=== PATIENT | female | born 1980 | race African-American/Black ===

== ENCOUNTER 2017-07-24 23:27 | Inpatient (IN) ==
[2017-07-25 02:18] LABS: Basophils % 0.7 % (0.0-0.8); Eosinophils # 0.3 10*3/uL (0.0-0.87); Eosinophils % 5.2 % (0.00-10.9); Hematocrit 25.9 VOL% (35.7-47.0); Hemoglobin 8.2 GM/DL (12.0-16.0); Immature Granulocytes % 0.8 %; Immature Granulocytes Absolute 0.05 #; Mean Corpuscular HGB Conc 31.7 GM/DL (32-36); Mean Corpuscular Hemoglobin 25 PG (27-34); Mean Corpuscular Volume 77.5 FL (87-102); Mean Platelet Volume 10.5 FL (9.6-12.0); Monocytes # 0.4 10*3/uL (0.11-0.8); Monocytes % 6.5 % (1.7-12.7); Neutrophils # 4.3 10*3/uL (1.4-7.4); Neutrophils % 70.8 % (38.7-73.9); Platelet Count 195 T/CUMM (130-400); Red Blood Count 3.34 MC/CUMM (3.8-5.5); White Blood Count 6.1 T/CUMM (4-12)
[2017-07-25 02:26] LABS: PT Patient Result 10.2 SECS
[2017-07-25 02:42] LABS: Alanine Aminotransferase 11 U/L (13-56); Albumin 1.3 G/DL (3.4-5.0); Alkaline Phosphatase 84 U/L (45-117); Aspartate Amino Transferase 15 U/L (0-37); Bilirubin,Total < 0.39 MG/DL (0.2-1.0); Blood Urea Nitrogen 20 MG/DL (7-18); Calcium 7.4 MG/DL (8.5-10.1); Glucose 91 MG/DL (74-106); Osmolality,Calculated 275.8 MOS/KG (273-304); Potassium 3.7 MMOL/L (3.5-5.1); Sodium 137 MMOL/L (136-145); Total Protein 6.5 G/DL (6.4-8.3); Troponin I Only < 0.015 NG/ML (0.00-0.045)
[2017-07-25 02:42] LABS: Apearance,Urine Slightly Hazy (Clear); Bilirubin,Urine Negative (Negative); Blood, Urine Moderate mg/dL (Negative); Glucose,Urine (UA) 50 mg/dL (Negative); Granular Casts,Urine 15 /LPF (0-1); Hyaline Casts,Urine 33 /LPF (0-3); Ketones,Urine Negative (Negative); Mucus,Urine Occasional /LPF (Occasional); Nitrite,Urine Negative (Negative); Protein,Urine >=500 MG/DL; RBC,Urine 74 /HPF (0-4); Squamous Epithelial Cell,Urine Occasional /HPF (0-10); Urine Color Yellow (Yellow); Urine Specific Gravity 1.011 (1.001-1.035); Urine Urobilinogen < 2.0 EU/DL (0.2-1.0); WBC,Urine 19 /HPF (0-6)
[2017-07-25 05:50] LABS: Hypochromasia 1+; Microcytosis 1+; Platelet Estimate Adequate
[2017-07-25] MEDS ORDERED: ONDANSETRON 4 MG/2 ML VIAL IV ONE (06:07)
[2017-07-25] MEDS ORDERED: ONDANSETRON 4 MG/2 ML VIAL ONE (06:09)
[2017-07-25] MEDS ORDERED: DEXTROSE 50% 25 GM/50 ML VIAL IV PRN (07:36)
[2017-07-25] MEDS ORDERED: FUROSEMIDE 20 MG/2 ML VIAL IV PRN (07:36)
[2017-07-25] MEDS ORDERED: ALBUMIN 25% 50 GM in PREMIX 1 EACH IV ONE (07:36)
[2017-07-25] MEDS ORDERED: SODIUM CHLORIDE 0.9% 1,000 ML IV PRN (07:36)
[2017-07-25] MEDS ORDERED: GLUCAGON 1 MG VIAL IM PRN (07:36)
[2017-07-25] MEDS: INSULIN REGULAR 100 UNIT/ML SUBCUT SCH ×4 (08:00→21:05)
[2017-07-25] MEDS ORDERED: FUROSEMIDE 40 MG/4 ML VIAL IV SCH (09:00)
[2017-07-25] MEDS: SODIUM CHLORIDE 0.9% 1,000 ML IV SCH (09:14)
[2017-07-25] MEDS: CIPROFLOXACIN INJ 400 MG in PREMIX 1 EACH IV SCH ×2 (09:15→21:03)
[2017-07-25] MEDS: ENOXAPARIN 40 MG/0.4 ML SYRINGE SUBCUT SCH (09:20)
[2017-07-25 09:23] LABS: Basophils # 0.1 10*3/uL (0.0-0.2); Basophils % 0.8 % (0.0-0.8); Eosinophils # 0.2 10*3/uL (0.0-0.87); Eosinophils % 3.3 % (0.00-10.9); Hematocrit 26.4 VOL% (35.7-47.0); Hemoglobin 8.4 GM/DL (12.0-16.0); Immature Granulocytes % 0.5 %; Immature Granulocytes Absolute 0.03 #; Lymphocytes # 0.8 10*3/uL (1.4-4.0); Lymphocytes % 13.2 % (21.3-54.2); Mean Corpuscular HGB Conc 31.8 GM/DL (32-36); Mean Corpuscular Hemoglobin 25 PG (27-34); Mean Corpuscular Volume 77.9 FL (87-102); Mean Platelet Volume 10.9 FL (9.6-12.0); Monocytes # 0.4 10*3/uL (0.11-0.8); Monocytes % 5.9 % (1.7-12.7); Neutrophils # 4.8 10*3/uL (1.4-7.4); Neutrophils % 76.3 % (38.7-73.9); Platelet Count 175 T/CUMM (130-400); Red Blood Count 3.39 MC/CUMM (3.8-5.5); Red Cell Distribution Width 17.1 % (9.3-17.3); White Blood Count 6.3 T/CUMM (4-12)
[2017-07-25] MEDS: DOCUSATE SODIUM 100 MG CAPSULE PO SCH ×2 (09:23→21:05)
[2017-07-25] MEDS: PANTOPRAZOLE 40 MG TABLET PO SCH (09:23)
[2017-07-25 09:47] LABS: Eosinophils 4 % (0-10); Hypochromasia 1+; Lymphocytes 10 % (20-55); Segmented Neutrophils 81 % (50-85); Total Cells Counted 100
[2017-07-25 09:48] LABS: Microcytosis 1+; Platelet Estimate Adequate
[2017-07-25 10:00] LABS: Risk Ratio 6.97
[2017-07-25 10:13] LABS: Vitamin B12 373 PG/ML (211-911)
[2017-07-25 10:27] LABS: Sedimentation Rate-Westergren 123 MM/HR (0-20)
[2017-07-25] MEDS: MORPHINE 2 MG/1 ML SYRINGE IV PRN ×3 (11:39→21:02)
[2017-07-25 12:21] LABS: Immunoglobulin A 661 MG/DL (70-400); Immunoglobulin G 2290 MG/DL (700-1600); Immunoglobulin M 107 MG/DL (40-230)
[2017-07-25] MEDS: METOPROLOL TARTRATE 5 MG/5 ML VIAL IV SCH ×2 (12:44→18:34)
[2017-07-25 13:26] LABS: % Iron Saturation 12.8 % (18-50)
[2017-07-25] MEDS: FUROSEMIDE 100 MG/10 ML VIAL IV SCH (18:45)
[2017-07-25 19:36] LABS: Hematocrit 28.6 VOL% (35.7-47.0); Hemoglobin 9.2 GM/DL (12.0-16.0)
[2017-07-25] MEDS: HYDROXYCHLOROQUINE 200 MG TABLET PO SCH (21:05)
[2017-07-25] MEDS: LISINOPRIL 10 MG TABLET PO SCH (21:05)
[2017-07-25] MEDS: ATORVASTATIN 20 MG TABLET PO SCH (21:05)
[2017-07-25] MEDS: cloNIDine 0.1 MG TABLET PO SCH (21:06)
[2017-07-26] MEDS: METOPROLOL TARTRATE 5 MG/5 ML VIAL IV SCH ×3 (00:28→13:23)
[2017-07-26] MEDS: MORPHINE 2 MG/1 ML SYRINGE IV PRN ×4 (00:52→21:56)
[2017-07-26] MEDS: SODIUM CHLORIDE 0.9% 1,000 ML IV SCH (03:21)
[2017-07-26 05:49] LABS: Immunoglobulin A (Chem) 661 MG/DL (70-400); Immunoglobulin G (Chem) 2290 MG/DL (700-1600); Immunoglobulin M (Chem) 107 MG/DL (40-230)
[2017-07-26 08:14] LABS: Basophils % 0.7 % (0.0-0.8); Eosinophils # 0.3 10*3/uL (0.0-0.87); Eosinophils % 4.5 % (0.00-10.9); Hemoglobin 8.6 GM/DL (12.0-16.0); Immature Granulocytes % 0.7 %; Immature Granulocytes Absolute 0.04 #; Lymphocytes # 0.8 10*3/uL (1.4-4.0); Lymphocytes % 13.8 % (21.3-54.2); Mean Corpuscular HGB Conc 33.1 GM/DL (32-36); Mean Corpuscular Hemoglobin 25 PG (27-34); Mean Platelet Volume 10.6 FL (9.6-12.0); Monocytes # 0.4 10*3/uL (0.11-0.8); Monocytes % 7.1 % (1.7-12.7); Neutrophils # 4.4 10*3/uL (1.4-7.4); Neutrophils % 73.2 % (38.7-73.9); Platelet Count 145 T/CUMM (130-400); Red Blood Count 3.42 MC/CUMM (3.8-5.5); Red Cell Distribution Width 16.8 % (9.3-17.3)
[2017-07-26] MEDS: LISINOPRIL 10 MG TABLET PO SCH ×2 (08:35→21:55)
[2017-07-26] MEDS: cloNIDine 0.1 MG TABLET PO SCH ×2 (08:36→21:56)
[2017-07-26] MEDS: DOCUSATE SODIUM 100 MG CAPSULE PO SCH ×2 (08:36→21:55)
[2017-07-26] MEDS: HYDROXYCHLOROQUINE 200 MG TABLET PO SCH ×2 (08:36→21:56)
[2017-07-26 08:37] LABS: Calcium 7.6 MG/DL (8.5-10.1); Osmolality,Calculated 274.8 MOS/KG (273-304); Potassium 3.6 MMOL/L (3.5-5.1)
[2017-07-26] MEDS: PANTOPRAZOLE 40 MG TABLET PO SCH (08:37)
[2017-07-26] MEDS: ENOXAPARIN 40 MG/0.4 ML SYRINGE SUBCUT SCH (08:37)
[2017-07-26] MEDS: FERROUS SULFATE 325 MG TABLET PO SCH (08:37)
[2017-07-26] MEDS: FUROSEMIDE 100 MG/10 ML VIAL IV SCH ×2 (08:38→15:37)
[2017-07-26] MEDS: CIPROFLOXACIN INJ 400 MG in PREMIX 1 EACH IV SCH ×2 (08:39→21:55)
[2017-07-26] MEDS: INSULIN REGULAR 100 UNIT/ML SUBCUT SCH ×4 (08:51→21:50)
[2017-07-26 10:23] LABS: Hemoglobin A1 (Alkaline) 97.4 % (96.5-98.5); Hemoglobin A2 (Alkaline) 2.6 % (1.5-3.5)
[2017-07-26 11:50] LABS: Albumin (SPE) 1.3 G/DL (3.2-5.3); Albumin (SPE) Rel % 20.4 %; Alpha 1 (SPE) 0.4 G/DL (0.1-0.4); Alpha 1 (SPE) Rel % 5.4 %; Alpha 2 (SPE) 0.8 G/DL (0.4-1.0); Alpha 2 (SPE) Rel % 12.9 %; Total Protein (Chem) 6.6 G/DL (6.4-8.3)
[2017-07-26 11:51] LABS: Gamma (SPE) 3.1 G/DL (0.7-1.7); Gamma (SPE) Rel % 46.3 %
[2017-07-26 12:52] LABS: Double Stranded DNA Antibodies > 200.0 IU/ML
[2017-07-26] MEDS: METOPROLOL TARTRATE 25 MG TABLET PO SCH (17:39)
[2017-07-26] MEDS: ONDANSETRON 4 MG/2 ML VIAL IV PRN (21:55)
[2017-07-26] MEDS: ATORVASTATIN 20 MG TABLET PO SCH (21:56)
[2017-07-26 22:45] LABS: Collection Time,Urine 24 HOURS; Total Protein 24 Hr Ur Result 21200 MG/24HR (0-149.1); Total Volume,Urine 3425 ML (400-2000)
[2017-07-26 23:04] LABS: Creatinine 24 Hr Urine Result 0.58 G/24HR (0.60-1.80)
[2017-07-27 06:33] LABS: Albumin 1.3 G/DL (3.4-5.0); Bilirubin,Total 0.6 MG/DL (0.2-1.0); Calcium 7.4 MG/DL (8.5-10.1); Potassium 3.4 MMOL/L (3.5-5.1); Total Protein 5.4 G/DL (6.4-8.3)
[2017-07-27 08:06] LABS: Basophils % 0.5 % (0.0-0.8); Eosinophils # 0.3 10*3/uL (0.0-0.87); Eosinophils % 5.1 % (0.00-10.9); Hematocrit 25.1 VOL% (35.7-47.0); Hemoglobin 8.5 GM/DL (12.0-16.0); Immature Granulocytes % 0.7 %; Immature Granulocytes Absolute 0.04 #; Lymphocytes # 0.9 10*3/uL (1.4-4.0); Lymphocytes % 14.5 % (21.3-54.2); Mean Corpuscular HGB Conc 33.9 GM/DL (32-36); Mean Corpuscular Hemoglobin 26 PG (27-34); Mean Corpuscular Volume 75.8 FL (87-102); Mean Platelet Volume 10.9 FL (9.6-12.0); Monocytes # 0.4 10*3/uL (0.11-0.8); Monocytes % 7.5 % (1.7-12.7); Neutrophils # 4.2 10*3/uL (1.4-7.4); Neutrophils % 71.7 % (38.7-73.9); Platelet Count 115 T/CUMM (130-400); Red Blood Count 3.31 MC/CUMM (3.8-5.5); Red Cell Distribution Width 16.4 % (9.3-17.3); White Blood Count 5.9 T/CUMM (4-12)
[2017-07-27 08:37] LABS: Eosinophils 4 % (0-10); Lymphocytes 9 % (20-55); Platelet Estimate Decreased; Segmented Neutrophils 77 % (50-85); Total Cells Counted 100
[2017-07-27 08:38] LABS: Giant Platelets Few; Hypochromasia 1+; Microcytosis Slight; Ovalocytes Slight
[2017-07-27] MEDS: INSULIN REGULAR 100 UNIT/ML SUBCUT SCH ×3 (09:28→21:25)
[2017-07-27] MEDS: CIPROFLOXACIN INJ 400 MG in PREMIX 1 EACH IV SCH ×2 (09:29→21:22)
[2017-07-27] MEDS: DOCUSATE SODIUM 100 MG CAPSULE PO SCH ×2 (09:30→21:17)
[2017-07-27] MEDS: HYDROXYCHLOROQUINE 200 MG TABLET PO SCH ×2 (09:30→21:17)
[2017-07-27] MEDS: LISINOPRIL 10 MG TABLET PO SCH ×2 (09:30→21:17)
[2017-07-27] MEDS: cloNIDine 0.1 MG TABLET PO SCH (09:30)
[2017-07-27] MEDS: METOPROLOL TARTRATE 25 MG TABLET PO SCH ×2 (09:30→21:17)
[2017-07-27] MEDS: FERROUS SULFATE 325 MG TABLET PO SCH (09:31)
[2017-07-27] MEDS: PANTOPRAZOLE 40 MG TABLET PO SCH (09:31)
[2017-07-27] MEDS: ENOXAPARIN 40 MG/0.4 ML SYRINGE SUBCUT SCH (09:32)
[2017-07-27] MEDS: FUROSEMIDE 100 MG/10 ML VIAL IV SCH ×2 (09:32→16:40)
[2017-07-27] MEDS ORDERED: POTASSIUM CHLORIDE 20 MEQ TABLET PO ONE (11:54)
[2017-07-27] MEDS ORDERED: MAGNESIUM SULF RIDER 2 GM in PREMIX 1 EACH IV ONE (12:00)
[2017-07-27] MEDS: IRON SUCROSE 200 MG in SODIUM CHLORIDE 0.9% 100 ML IV SCH (12:16)
[2017-07-27] MEDS: amLODIPine 5 MG TABLET PO SCH (12:20)
[2017-07-27] MEDS: ATORVASTATIN 20 MG TABLET PO SCH (21:17)
[2017-07-27] MEDS: ONDANSETRON 4 MG/2 ML VIAL IV PRN (21:19)
[2017-07-27] MEDS: MORPHINE 2 MG/1 ML SYRINGE IV PRN (21:20)
[2017-07-28 05:34] LABS: Basophils % 0.6 % (0.0-0.8); Eosinophils # 0.3 10*3/uL (0.0-0.87); Eosinophils % 6.4 % (0.00-10.9); Hematocrit 23.6 VOL% (35.7-47.0); Hemoglobin 7.7 GM/DL (12.0-16.0); Immature Granulocytes % 0.8 %; Immature Granulocytes Absolute 0.04 #; Lymphocytes # 0.6 10*3/uL (1.4-4.0); Lymphocytes % 12.9 % (21.3-54.2); Mean Corpuscular HGB Conc 32.6 GM/DL (32-36); Mean Corpuscular Hemoglobin 25 PG (27-34); Mean Corpuscular Volume 77.6 FL (87-102); Mean Platelet Volume 11.1 FL (9.6-12.0); Monocytes # 0.4 10*3/uL (0.11-0.8); Monocytes % 8.5 % (1.7-12.7); Neutrophils # 3.5 10*3/uL (1.4-7.4); Neutrophils % 70.8 % (38.7-73.9); Platelet Count 102 T/CUMM (130-400); Red Blood Count 3.04 MC/CUMM (3.8-5.5); Red Cell Distribution Width 16.5 % (9.3-17.3)
[2017-07-28 06:10] LABS: Alanine Aminotransferase < 9 U/L (13-56); Albumin 1.3 G/DL (3.4-5.0); Alkaline Phosphatase 65 U/L (45-117); Aspartate Amino Transferase 16 U/L (0-37); Bilirubin,Total < 0.39 MG/DL (0.2-1.0); Blood Urea Nitrogen 24 MG/DL (7-18); Calcium 7.3 MG/DL (8.5-10.1); Glucose 86 MG/DL (74-106); Osmolality,Calculated 277.7 MOS/KG (273-304); Potassium 3.3 MMOL/L (3.5-5.1); Sodium 138 MMOL/L (136-145); Total Protein 5.2 G/DL (6.4-8.3)
[2017-07-28 06:11] LABS: Calcium 7.4 MG/DL (8.5-10.1); Osmolality,Calculated 275.8 MOS/KG (273-304); Potassium 3.3 MMOL/L (3.5-5.1)
[2017-07-28] MEDS: INSULIN REGULAR 100 UNIT/ML SUBCUT SCH ×4 (09:45→20:35)
[2017-07-28] MEDS ORDERED: DIAZEPAM 5 MG TABLET PO ONE (09:48)
[2017-07-28] MEDS: METOPROLOL TARTRATE 25 MG TABLET PO SCH ×2 (09:53→23:38)
[2017-07-28] MEDS: IRON SUCROSE 200 MG in SODIUM CHLORIDE 0.9% 100 ML IV SCH (11:20)
[2017-07-28] MEDS: FUROSEMIDE 100 MG/10 ML VIAL IV SCH ×2 (11:21→16:51)
[2017-07-28] MEDS: amLODIPine 5 MG TABLET PO SCH (11:55)
[2017-07-28] MEDS: DOCUSATE SODIUM 100 MG CAPSULE PO SCH ×2 (11:55→23:38)
[2017-07-28] MEDS: FERROUS SULFATE 325 MG TABLET PO SCH (11:55)
[2017-07-28] MEDS: HYDROXYCHLOROQUINE 200 MG TABLET PO SCH ×2 (11:55→23:38)
[2017-07-28] MEDS: LISINOPRIL 10 MG TABLET PO SCH ×2 (11:55→23:38)
[2017-07-28] MEDS: PANTOPRAZOLE 40 MG TABLET PO SCH (11:55)
[2017-07-28] MEDS: CIPROFLOXACIN INJ 400 MG in PREMIX 1 EACH IV SCH ×2 (11:56→22:00)
[2017-07-28 15:52] LABS: Hematocrit 24.5 VOL% (35.7-47.0); Hemoglobin 8.3 GM/DL (12.0-16.0)
[2017-07-28] MEDS: ATORVASTATIN 20 MG TABLET PO SCH (23:39)
[2017-07-28] MEDS: MORPHINE 2 MG/1 ML SYRINGE IV PRN (23:46)
[2017-07-29] MEDS: HYDROXYCHLOROQUINE 200 MG TABLET PO SCH ×2 (08:47→22:40)
[2017-07-29] MEDS: METOPROLOL TARTRATE 25 MG TABLET PO SCH ×2 (08:47→22:40)
[2017-07-29] MEDS: LISINOPRIL 10 MG TABLET PO SCH ×2 (08:47→22:40)
[2017-07-29] MEDS: FUROSEMIDE 100 MG/10 ML VIAL IV SCH ×2 (08:48→15:48)
[2017-07-29] MEDS: DOCUSATE SODIUM 100 MG CAPSULE PO SCH ×2 (08:48→22:41)
[2017-07-29] MEDS: FOLIC ACID 1 MG TABLET PO SCH (08:48)
[2017-07-29] MEDS: FERROUS SULFATE 325 MG TABLET PO SCH (08:48)
[2017-07-29] MEDS: MORPHINE 2 MG/1 ML SYRINGE IV PRN ×2 (08:48→15:55)
[2017-07-29] MEDS: PANTOPRAZOLE 40 MG TABLET PO SCH (08:48)
[2017-07-29] MEDS: amLODIPine 5 MG TABLET PO SCH (08:49)
[2017-07-29] MEDS: INSULIN REGULAR 100 UNIT/ML SUBCUT SCH ×4 (08:49→20:29)
[2017-07-29] MEDS: CIPROFLOXACIN INJ 400 MG in PREMIX 1 EACH IV SCH ×2 (08:49→22:20)
[2017-07-29 08:50] LABS: Albumin (UPE) Rel % 42.5 %; Alpha 1 (UPE) Rel % 8.5 %; Alpha 2 (UPE) 2289.6 MG/24H; Alpha 2 (UPE) Rel % 10.8 %; Beta (UPE) 3243.6 MG/24H; Beta (UPE) Rel % 15.3 %; Gamma (UPE) 2854.8 MG/24H; Gamma (UPE) Rel % 22.9 %
[2017-07-29 10:55] LABS: Basophils % 0.8 % (0.0-0.8); Eosinophils # 0.3 10*3/uL (0.0-0.87); Eosinophils % 5.8 % (0.00-10.9); Hematocrit 22.8 VOL% (35.7-47.0); Hemoglobin 7.8 GM/DL (12.0-16.0); Immature Granulocytes % 1.2 %; Immature Granulocytes Absolute 0.06 #; Lymphocytes # 0.6 10*3/uL (1.4-4.0); Lymphocytes % 12.1 % (21.3-54.2); Mean Corpuscular HGB Conc 34.2 GM/DL (32-36); Mean Corpuscular Hemoglobin 27 PG (27-34); Mean Corpuscular Volume 77.6 FL (87-102); Monocytes # 0.4 10*3/uL (0.11-0.8); Monocytes % 7.4 % (1.7-12.7); Neutrophils # 3.7 10*3/uL (1.4-7.4); Neutrophils % 72.7 % (38.7-73.9); Platelet Count 105 T/CUMM (130-400); Red Blood Count 2.94 MC/CUMM (3.8-5.5); Red Cell Distribution Width 16.5 % (9.3-17.3)
[2017-07-29] MEDS: IRON SUCROSE 200 MG in SODIUM CHLORIDE 0.9% 100 ML IV SCH (11:01)
[2017-07-29 11:24] LABS: Calcium 7.2 MG/DL (8.5-10.1); Osmolality,Calculated 278.8 MOS/KG (273-304); Potassium 3.2 MMOL/L (3.5-5.1)
[2017-07-29 11:25] LABS: Anti-Nuclear Antibody Pattern HOMOGENEOUS
[2017-07-29] MEDS ORDERED: SODIUM CHLORIDE 0.9% 1,000 ML IV PRN (12:41)
[2017-07-29] MEDS ORDERED: methylPREDNISolone SOD SUC INJ 500 MG in SODIUM CHLORIDE 0.9% 100 ML IV ONE (16:19)
[2017-07-29] MEDS: ATORVASTATIN 20 MG TABLET PO SCH (22:40)
[2017-07-30] MEDS: ONDANSETRON 4 MG/2 ML VIAL IV PRN ×2 (03:47→13:55)
[2017-07-30 07:28] LABS: Albumin 1.6 G/DL (3.4-5.0); Bilirubin,Total 0.4 MG/DL (0.2-1.0); Calcium 7.8 MG/DL (8.5-10.1); Osmolality,Calculated 279.1 MOS/KG (273-304); Potassium 3.6 MMOL/L (3.5-5.1); Total Protein 7.2 G/DL (6.4-8.3)
[2017-07-30] MEDS ORDERED: cefOXitin 2,000 MG in SYRINGE 1 EACH IV ONE (07:30)
[2017-07-30] MEDS ORDERED: LIDOCAINE 1%/EPI INJ 20 ML VIAL ONE (07:47)
[2017-07-30] MEDS ORDERED: TISSUE ADHESIVE 1 EACH APPLICATOR TOP ONE (07:47)
[2017-07-30 07:59] LABS: Basophils % 0.3 % (0.0-0.8); Hematocrit 29.2 VOL% (35.7-47.0); Hemoglobin 10.2 GM/DL (12.0-16.0); Immature Granulocytes % 1.3 %; Immature Granulocytes Absolute 0.09 #; Lymphocytes # 0.5 10*3/uL (1.4-4.0); Lymphocytes % 7.8 % (21.3-54.2); Mean Corpuscular HGB Conc 34.9 GM/DL (32-36); Mean Corpuscular Hemoglobin 28 PG (27-34); Mean Corpuscular Volume 78.7 FL (87-102); Mean Platelet Volume 11.3 FL (9.6-12.0); Monocytes # 0.2 10*3/uL (0.11-0.8); Monocytes % 2.2 % (1.7-12.7); Neutrophils # 6.1 10*3/uL (1.4-7.4); Neutrophils % 88.4 % (38.7-73.9); Platelet Count 106 T/CUMM (130-400); Red Blood Count 3.71 MC/CUMM (3.8-5.5); Red Cell Distribution Width 16.3 % (9.3-17.3); White Blood Count 6.9 T/CUMM (4-12)
[2017-07-30] MEDS: FUROSEMIDE 100 MG/10 ML VIAL IV SCH ×2 (09:14→15:45)
[2017-07-30] MEDS: INSULIN REGULAR 100 UNIT/ML SUBCUT SCH ×4 (09:14→21:26)
[2017-07-30] MEDS: METOPROLOL TARTRATE 25 MG TABLET PO SCH ×2 (09:15→21:21)
[2017-07-30] MEDS: FERROUS SULFATE 325 MG TABLET PO SCH (09:15)
[2017-07-30] MEDS: FOLIC ACID 1 MG TABLET PO SCH (09:15)
[2017-07-30] MEDS: DOCUSATE SODIUM 100 MG CAPSULE PO SCH ×2 (09:15→21:21)
[2017-07-30] MEDS: amLODIPine 5 MG TABLET PO SCH (09:15)
[2017-07-30] MEDS: CIPROFLOXACIN INJ 400 MG in PREMIX 1 EACH IV SCH ×2 (09:15→21:19)
[2017-07-30] MEDS: IRON SUCROSE 200 MG in SODIUM CHLORIDE 0.9% 100 ML IV SCH (09:15)
[2017-07-30] MEDS: PANTOPRAZOLE 40 MG TABLET PO SCH (09:15)
[2017-07-30] MEDS: LISINOPRIL 10 MG TABLET PO SCH ×2 (09:15→21:20)
[2017-07-30] MEDS: HYDROXYCHLOROQUINE 200 MG TABLET PO SCH ×2 (09:15→21:20)
[2017-07-30 10:11] LABS: Anti SS-A Antibodies 27 EU/ML
[2017-07-30 10:12] LABS: Anti SS-B Antibodies < 16 EU/ML
[2017-07-30] MEDS ORDERED: PROPOFOL 200 MG/20 ML VIAL IV ONE (10:44)
[2017-07-30] MEDS ORDERED: HYDROmorphone 2 MG/1 ML VIAL ONE (10:44)
[2017-07-30] MEDS ORDERED: ROCURONIUM 100 MG/10 ML VIAL IV ONE (10:45)
[2017-07-30] MEDS ORDERED: KETOROLAC 30 MG/1 ML VIAL ONE (10:45)
[2017-07-30] MEDS ORDERED: GLYCOPYRROLATE 0.4 MG/2 ML VIAL ONE (10:45)
[2017-07-30] MEDS ORDERED: LACTATED RINGERS 1,000 ML IV ONE (10:45)
[2017-07-30] MEDS ORDERED: DEXAMETHASONE 10 MG/1 ML VIAL ONE (10:45)
[2017-07-30] MEDS ORDERED: SUCCINYLCHOLINE 200 MG/10 ML VIAL ONE (10:45)
[2017-07-30] MEDS ORDERED: ACETAMINOPHEN 1,000 MG/100 ML VIAL IV ONE (10:45)
[2017-07-30] MEDS ORDERED: NEOSTIGMINE 10 MG/10 ML VIAL ONE (10:45)
[2017-07-30] MEDS ORDERED: ONDANSETRON 4 MG/2 ML VIAL ONE (10:45)
[2017-07-30] MEDS ORDERED: LABETALOL 100 MG/20 ML VIAL IV ONE (10:45)
[2017-07-30] MEDS ORDERED: METOCLOPRAMIDE 10 MG/2 ML VIAL ONE (10:45)
[2017-07-30] MEDS ORDERED: fentaNYL 100 MCG/2 ML VIAL ONE (10:46)
[2017-07-30] MEDS ORDERED: SEVOFLURANE 1 UNIT/15 MINUTE INH ONE (11:55)
[2017-07-30] MEDS: SODIUM CHLORIDE 0.9% IV SCH (13:55)
[2017-07-30] MEDS: METHYLPREDNISOLONE SOD SUC IV SCH (13:55)
[2017-07-30] MEDS: MORPHINE 4 MG/1 ML VIAL IV PRN (13:55)
[2017-07-30] MEDS: ATORVASTATIN 20 MG TABLET PO SCH (21:21)
[2017-07-31 05:54] LABS: Basophils % 0.1 % (0.0-0.8); Hematocrit 21.2 VOL% (35.7-47.0); Hemoglobin 7.2 GM/DL (12.0-16.0); Immature Granulocytes % 1.5 %; Immature Granulocytes Absolute 0.14 #; Lymphocytes # 0.7 10*3/uL (1.4-4.0); Mean Corpuscular Hemoglobin 27 PG (27-34); Mean Corpuscular Volume 80.6 FL (87-102); Monocytes # 0.6 10*3/uL (0.11-0.8); Monocytes % 5.9 % (1.7-12.7); Neutrophils % 85.5 % (38.7-73.9); Platelet Count 131 T/CUMM (130-400); Red Blood Count 2.63 MC/CUMM (3.8-5.5); White Blood Count 9.3 T/CUMM (4-12)
[2017-07-31 06:13] LABS: Calcium 7.2 MG/DL (8.5-10.1); Potassium 4.1 MMOL/L (3.5-5.1)
[2017-07-31 06:16] LABS: Albumin 1.4 G/DL (3.4-5.0); Bilirubin,Total 0.5 MG/DL (0.2-1.0); Calcium 7.3 MG/DL (8.5-10.1); Osmolality,Calculated 287.1 MOS/KG (273-304); Potassium 4.2 MMOL/L (3.5-5.1); Total Protein 5.6 G/DL (6.4-8.3)
[2017-07-31] MEDS ORDERED: SODIUM CHLORIDE 0.9% 1,000 ML IV PRN (07:27)
[2017-07-31] MEDS: FUROSEMIDE 100 MG/10 ML VIAL IV SCH ×2 (09:27→16:05)
[2017-07-31] MEDS: CIPROFLOXACIN INJ 400 MG in PREMIX 1 EACH IV SCH ×2 (09:28→21:22)
[2017-07-31] MEDS: FOLIC ACID 1 MG TABLET PO SCH (09:30)
[2017-07-31] MEDS: DOCUSATE SODIUM 100 MG CAPSULE PO SCH ×2 (09:30→21:21)
[2017-07-31] MEDS: amLODIPine 5 MG TABLET PO SCH (09:30)
[2017-07-31] MEDS: METOPROLOL TARTRATE 25 MG TABLET PO SCH ×2 (09:31→21:22)
[2017-07-31] MEDS: PANTOPRAZOLE 40 MG TABLET PO SCH (09:32)
[2017-07-31] MEDS: LISINOPRIL 10 MG TABLET PO SCH ×2 (09:32→21:21)
[2017-07-31] MEDS: FERROUS SULFATE 325 MG TABLET PO SCH (09:32)
[2017-07-31] MEDS: HYDROXYCHLOROQUINE 200 MG TABLET PO SCH ×2 (09:32→21:21)
[2017-07-31] MEDS: INSULIN REGULAR 100 UNIT/ML SUBCUT SCH ×4 (09:58→21:22)
[2017-07-31] MEDS: IRON SUCROSE 200 MG in SODIUM CHLORIDE 0.9% 100 ML IV SCH (12:45)
[2017-07-31] MEDS ORDERED: SODIUM CHLORIDE 0.9% IV SCH (16:00)
[2017-07-31] MEDS ORDERED: METHYLPREDNISOLONE SOD SUC IV SCH (16:00)
[2017-07-31] MEDS: METHYLPREDNISOLONE SOD SUC IV SCH ×2 (16:04→16:06)
[2017-07-31] MEDS: SODIUM CHLORIDE 0.9% IV SCH ×2 (16:04→16:06)
[2017-07-31 16:59] LABS: Hematocrit 25.8 VOL% (35.7-47.0)
[2017-07-31 17:08] LABS: Hemoglobin 8.8 GM/DL (12.0-16.0)
[2017-07-31] MEDS: ATORVASTATIN 20 MG TABLET PO SCH (21:21)
[2017-08-01 07:00] LABS: Basophils % 0.1 % (0.0-0.8); Hematocrit 25.1 VOL% (35.7-47.0); Hemoglobin 8.6 GM/DL (12.0-16.0); Immature Granulocytes % 3.7 %; Immature Granulocytes Absolute 0.31 #; Lymphocytes # 0.6 10*3/uL (1.4-4.0); Lymphocytes % 7.7 % (21.3-54.2); Mean Corpuscular HGB Conc 34.3 GM/DL (32-36); Mean Corpuscular Hemoglobin 28 PG (27-34); Mean Corpuscular Volume 81.8 FL (87-102); Mean Platelet Volume 11.6 FL (9.6-12.0); Monocytes # 0.3 10*3/uL (0.11-0.8); Monocytes % 3.7 % (1.7-12.7); Neutrophils % 84.8 % (38.7-73.9); Platelet Count 109 T/CUMM (130-400); Red Blood Count 3.07 MC/CUMM (3.8-5.5); Red Cell Distribution Width 16.5 % (9.3-17.3); White Blood Count 8.3 T/CUMM (4-12)
[2017-08-01 07:37] LABS: Albumin 1.7 G/DL (3.4-5.0); Bilirubin,Total 0.4 MG/DL (0.2-1.0); Calcium 7.3 MG/DL (8.5-10.1); Potassium 3.9 MMOL/L (3.5-5.1); Total Protein 6.1 G/DL (6.4-8.3)
[2017-08-01] MEDS: FUROSEMIDE 100 MG/10 ML VIAL IV SCH ×2 (09:49→16:08)
[2017-08-01] MEDS: METOPROLOL TARTRATE 25 MG TABLET PO SCH ×2 (09:50→20:50)
[2017-08-01] MEDS: DOCUSATE SODIUM 100 MG CAPSULE PO SCH ×2 (09:50→20:50)
[2017-08-01] MEDS: FOLIC ACID 1 MG TABLET PO SCH (09:50)
[2017-08-01] MEDS: HYDROXYCHLOROQUINE 200 MG TABLET PO SCH ×2 (09:50→20:50)
[2017-08-01] MEDS: PANTOPRAZOLE 40 MG TABLET PO SCH (09:50)
[2017-08-01] MEDS: FERROUS SULFATE 325 MG TABLET PO SCH (09:50)
[2017-08-01] MEDS: LISINOPRIL 10 MG TABLET PO SCH (09:50)
[2017-08-01] MEDS: amLODIPine 5 MG TABLET PO SCH (09:51)
[2017-08-01] MEDS: CIPROFLOXACIN INJ 400 MG in PREMIX 1 EACH IV SCH ×2 (09:51→20:51)
[2017-08-01] MEDS: INSULIN REGULAR 100 UNIT/ML SUBCUT SCH ×4 (09:56→20:52)
[2017-08-01] MEDS: ATORVASTATIN 20 MG TABLET PO SCH (20:50)
[2017-08-02 05:24] LABS: Basophils % 0.1 % (0.0-0.8); Eosinophils % 0.1 % (0.00-10.9); Hematocrit 22.7 VOL% (35.7-47.0); Hemoglobin 7.9 GM/DL (12.0-16.0); Immature Granulocytes % 3.7 %; Immature Granulocytes Absolute 0.27 #; Lymphocytes # 0.9 10*3/uL (1.4-4.0); Lymphocytes % 12.5 % (21.3-54.2); Mean Corpuscular HGB Conc 34.8 GM/DL (32-36); Mean Corpuscular Hemoglobin 29 PG (27-34); Mean Corpuscular Volume 83.2 FL (87-102); Mean Platelet Volume 11.3 FL (9.6-12.0); Monocytes # 0.7 10*3/uL (0.11-0.8); Monocytes % 9.2 % (1.7-12.7); Neutrophils # 5.4 10*3/uL (1.4-7.4); Neutrophils % 74.4 % (38.7-73.9); Platelet Count 97 T/CUMM (130-400); Red Blood Count 2.73 MC/CUMM (3.8-5.5); Red Cell Distribution Width 16.5 % (9.3-17.3); White Blood Count 7.3 T/CUMM (4-12)
[2017-08-02 05:48] LABS: Band Neutrophils 2 % (0-10); Lymphocytes 3 % (20-55); Segmented Neutrophils 87 % (50-85); Total Cells Counted 100
[2017-08-02 05:49] LABS: Giant Platelets Few; Hypochromasia 1+; Ovalocytes Slight; Platelet Estimate Decreased
[2017-08-02 06:02] LABS: Albumin 1.7 G/DL (3.4-5.0); Calcium 7.5 MG/DL (8.5-10.1); Osmolality,Calculated 290.8 MOS/KG (273-304); Potassium 3.3 MMOL/L (3.5-5.1); Total Protein 5.7 G/DL (6.4-8.3)
[2017-08-02] MEDS: INSULIN REGULAR 100 UNIT/ML SUBCUT SCH ×4 (08:45→21:11)
[2017-08-02] MEDS ORDERED: SODIUM CHLORIDE 0.9% 1,000 ML IV PRN (09:14)
[2017-08-02] MEDS: CIPROFLOXACIN INJ 400 MG in PREMIX 1 EACH IV SCH (10:39)
[2017-08-02] MEDS: FUROSEMIDE 100 MG/10 ML VIAL IV SCH ×2 (10:39→16:27)
[2017-08-02] MEDS: DOCUSATE SODIUM 100 MG CAPSULE PO SCH ×2 (10:39→21:11)
[2017-08-02] MEDS: HYDROXYCHLOROQUINE 200 MG TABLET PO SCH ×2 (10:40→21:11)
[2017-08-02] MEDS: FOLIC ACID 1 MG TABLET PO SCH (10:40)
[2017-08-02] MEDS: FERROUS SULFATE 325 MG TABLET PO SCH (10:40)
[2017-08-02] MEDS: amLODIPine 5 MG TABLET PO SCH (10:40)
[2017-08-02] MEDS: PANTOPRAZOLE 40 MG TABLET PO SCH (10:40)
[2017-08-02] MEDS: METOPROLOL TARTRATE 25 MG TABLET PO SCH (10:40)
[2017-08-02] MEDS: predniSONE 20 MG TABLET PO SCH (10:42)
[2017-08-02 12:34] LABS: Hematocrit 24.3 VOL% (35.7-47.0); Hemoglobin 8.2 GM/DL (12.0-16.0)
[2017-08-02] MEDS: amLODIPine 10 MG TABLET PO SCH (15:09)
[2017-08-02] MEDS: LISINOPRIL 10 MG TABLET PO SCH (21:10)
[2017-08-02] MEDS: CARVEDILOL 12.5 MG TABLET PO SCH (21:11)
[2017-08-02] MEDS: ATORVASTATIN 20 MG TABLET PO SCH (21:11)
[2017-08-02 23:01] LABS: Hematocrit 30.5 VOL% (35.7-47.0); Hemoglobin 10.8 GM/DL (12.0-16.0)
[2017-08-03] MEDS: INSULIN REGULAR 100 UNIT/ML SUBCUT SCH ×4 (07:48→21:13)
[2017-08-03 07:56] LABS: Basophils % 0.3 % (0.0-0.8); Eosinophils % 0.1 % (0.00-10.9); Hematocrit 29.2 VOL% (35.7-47.0); Hemoglobin 10.5 GM/DL (12.0-16.0); Immature Granulocytes % 5.6 %; Immature Granulocytes Absolute 0.45 #; Lymphocytes # 1.1 10*3/uL (1.4-4.0); Lymphocytes % 13.1 % (21.3-54.2); Mean Corpuscular Hemoglobin 29 PG (27-34); Mean Corpuscular Volume 79.6 FL (87-102); Mean Platelet Volume 11.8 FL (9.6-12.0); Monocytes # 0.7 10*3/uL (0.11-0.8); Monocytes % 8.8 % (1.7-12.7); Neutrophils # 5.8 10*3/uL (1.4-7.4); Neutrophils % 72.1 % (38.7-73.9); Platelet Count 119 T/CUMM (130-400); Red Blood Count 3.67 MC/CUMM (3.8-5.5); Red Cell Distribution Width 16.9 % (9.3-17.3)
[2017-08-03] MEDS: LISINOPRIL 10 MG TABLET PO SCH ×2 (08:16→21:30)
[2017-08-03] MEDS: amLODIPine 10 MG TABLET PO SCH (08:16)
[2017-08-03] MEDS: FOLIC ACID 1 MG TABLET PO SCH (08:16)
[2017-08-03] MEDS: predniSONE 20 MG TABLET PO SCH (08:17)
[2017-08-03] MEDS: CARVEDILOL 12.5 MG TABLET PO SCH ×2 (08:17→21:30)
[2017-08-03] MEDS: PANTOPRAZOLE 40 MG TABLET PO SCH (08:17)
[2017-08-03] MEDS: HYDROXYCHLOROQUINE 200 MG TABLET PO SCH ×2 (08:17→21:30)
[2017-08-03] MEDS: FERROUS SULFATE 325 MG TABLET PO SCH (08:17)
[2017-08-03] MEDS: DOCUSATE SODIUM 100 MG CAPSULE PO SCH ×2 (08:17→21:30)
[2017-08-03 08:18] LABS: Band Neutrophils 4 % (0-10); Hypochromasia 1+; Lymphocytes 12 % (20-55); Myelocytes 1 %; Platelet Estimate Decreased; Segmented Neutrophils 78 % (50-85); Total Cells Counted 100
[2017-08-03] MEDS: FUROSEMIDE 100 MG/10 ML VIAL IV SCH ×2 (08:18→17:01)
[2017-08-03 08:19] LABS: Giant Platelets Few
[2017-08-03 08:37] LABS: Albumin 1.9 G/DL (3.4-5.0); Bilirubin,Total 0.4 MG/DL (0.2-1.0); Calcium 7.8 MG/DL (8.5-10.1); Osmolality,Calculated 293.5 MOS/KG (273-304); Potassium 3.1 MMOL/L (3.5-5.1); Total Protein 6.1 G/DL (6.4-8.3)
[2017-08-03] MEDS ORDERED: ONDANSETRON 4 MG/2 ML VIAL IV SCH (10:30)
[2017-08-03] MEDS ORDERED: CYCLOPHOSPHAMIDE INJ 1,500 MG in SODIUM CHLORIDE 0.9% 250 ML IV ONE (11:00)
[2017-08-03] MEDS: ATORVASTATIN 20 MG TABLET PO SCH (21:30)
[2017-08-03] MEDS: ONDANSETRON 4 MG/2 ML VIAL IV PRN (23:47)
[2017-08-04 06:21] LABS: Albumin 1.6 G/DL (3.4-5.0); Bilirubin,Total 0.7 MG/DL (0.2-1.0); Calcium 7.5 MG/DL (8.5-10.1); Total Protein 5.4 G/DL (6.4-8.3)
[2017-08-04 06:34] LABS: Basophils % 0.2 % (0.0-0.8); Eosinophils % 0.3 % (0.00-10.9); Hematocrit 28.8 VOL% (35.7-47.0); Hemoglobin 9.9 GM/DL (12.0-16.0); Immature Granulocytes % 3.2 %; Immature Granulocytes Absolute 0.31 #; Lymphocytes # 1.2 10*3/uL (1.4-4.0); Lymphocytes % 12.6 % (21.3-54.2); Mean Corpuscular HGB Conc 34.4 GM/DL (32-36); Mean Corpuscular Hemoglobin 28 PG (27-34); Mean Corpuscular Volume 81.8 FL (87-102); Mean Platelet Volume 11.6 FL (9.6-12.0); Monocytes # 0.8 10*3/uL (0.11-0.8); Monocytes % 7.8 % (1.7-12.7); Neutrophils # 7.5 10*3/uL (1.4-7.4); Neutrophils % 75.9 % (38.7-73.9); Platelet Count 105 T/CUMM (130-400); Red Blood Count 3.52 MC/CUMM (3.8-5.5); Red Cell Distribution Width 16.7 % (9.3-17.3); White Blood Count 9.8 T/CUMM (4-12)
[2017-08-04] MEDS: INSULIN REGULAR 100 UNIT/ML SUBCUT SCH ×4 (07:52→21:49)
[2017-08-04] MEDS: FUROSEMIDE 100 MG/10 ML VIAL IV SCH ×2 (08:44→16:04)
[2017-08-04] MEDS: FOLIC ACID 1 MG TABLET PO SCH (08:44)
[2017-08-04] MEDS: amLODIPine 10 MG TABLET PO SCH (08:44)
[2017-08-04] MEDS: predniSONE 20 MG TABLET PO SCH (08:44)
[2017-08-04] MEDS: HYDROXYCHLOROQUINE 200 MG TABLET PO SCH ×2 (08:44→21:30)
[2017-08-04] MEDS: FERROUS SULFATE 325 MG TABLET PO SCH (08:44)
[2017-08-04] MEDS: DOCUSATE SODIUM 100 MG CAPSULE PO SCH ×2 (08:44→21:38)
[2017-08-04] MEDS: LISINOPRIL 10 MG TABLET PO SCH ×2 (08:44→21:31)
[2017-08-04] MEDS: PANTOPRAZOLE 40 MG TABLET PO SCH (08:44)
[2017-08-04] MEDS: CARVEDILOL 12.5 MG TABLET PO SCH (08:44)
[2017-08-04] MEDS ORDERED: POTASSIUM CHLORIDE 20 MEQ TABLET PO ONE (11:15)
[2017-08-04] MEDS ORDERED: FOSAPREPITANT 150 MG in SODIUM CHLORIDE 0.9% 100 ML IV ONE (17:00)
[2017-08-04] MEDS: MORPHINE 4 MG/1 ML VIAL IV PRN (17:24)
[2017-08-04] MEDS: CARVEDILOL 25 MG TABLET PO SCH ×2 (18:39→20:41)
[2017-08-04] MEDS: ATORVASTATIN 20 MG TABLET PO SCH (21:32)
[2017-08-05] MEDS ORDERED: cloNIDine 0.1 MG TABLET PO PRN (05:09)
[2017-08-05 06:15] LABS: Eosinophils # 0.1 10*3/uL (0.0-0.87); Eosinophils % 1.3 % (0.00-10.9); Hematocrit 29.4 VOL% (35.7-47.0); Hemoglobin 10.3 GM/DL (12.0-16.0); Immature Granulocytes % 1.3 %; Immature Granulocytes Absolute 0.11 #; Lymphocytes # 0.8 10*3/uL (1.4-4.0); Lymphocytes % 9.6 % (21.3-54.2); Mean Corpuscular Hemoglobin 28 PG (27-34); Mean Corpuscular Volume 80.8 FL (87-102); Mean Platelet Volume 11.5 FL (9.6-12.0); Monocytes # 0.6 10*3/uL (0.11-0.8); Monocytes % 6.6 % (1.7-12.7); Neutrophils # 7.1 10*3/uL (1.4-7.4); Neutrophils % 81.2 % (38.7-73.9); Platelet Count 100 T/CUMM (130-400); Red Blood Count 3.64 MC/CUMM (3.8-5.5); Red Cell Distribution Width 17.2 % (9.3-17.3); White Blood Count 8.7 T/CUMM (4-12)
[2017-08-05 06:52] LABS: Calcium 7.8 MG/DL (8.5-10.1); Osmolality,Calculated 296.8 MOS/KG (273-304); Potassium 3.1 MMOL/L (3.5-5.1)
[2017-08-05] MEDS: INSULIN REGULAR 100 UNIT/ML SUBCUT SCH ×2 (08:49→11:32)
[2017-08-05] MEDS: DOCUSATE SODIUM 100 MG CAPSULE PO SCH (08:50)
[2017-08-05] MEDS: LISINOPRIL 10 MG TABLET PO SCH (08:50)
[2017-08-05] MEDS: amLODIPine 10 MG TABLET PO SCH (08:50)
[2017-08-05] MEDS: predniSONE 20 MG TABLET PO SCH (08:50)
[2017-08-05] MEDS: FOLIC ACID 1 MG TABLET PO SCH (08:51)
[2017-08-05] MEDS: PANTOPRAZOLE 40 MG TABLET PO SCH (08:51)
[2017-08-05] MEDS: CARVEDILOL 25 MG TABLET PO SCH (08:51)
[2017-08-05] MEDS: HYDROXYCHLOROQUINE 200 MG TABLET PO SCH (08:59)
[2017-08-05] MEDS ORDERED: LISINOPRIL 10 MG TABLET PO SCH (09:08)
[2017-08-05] MEDS ORDERED: POTASSIUM CHLORIDE 20 MEQ TABLET PO SCH (11:00)
[2017-08-05 12:21] VITALS: BP 126/95
[2017-08-05] MEDS ORDERED: LISINOPRIL 20 MG TABLET PO SCH (21:00)
== END 2017-08-05 12:50 | disposition home or self-care (01) | DRG 988 ==
LOC: N.ED 23:27 → SUATTDRO 07-25 05:41 → N.EDINP 07-25 05:41 → N.2E 07-25 06:40 → N.4E 08-03 10:01
PROVIDERS: ADMIT Internal Medicine; ATTEND Internal Medicine
PROC: LAPCHOL (2017-07-30 07:50)

== ENCOUNTER 2017-11-11 19:16 | Inpatient (IN) ==
[2017-11-11 20:42] LABS: Basophils % 0.1 % (0.0-0.8); Hematocrit 34.4 VOL% (35.7-47.0); Hemoglobin 10.7 GM/DL (12.0-16.0); Immature Granulocytes % 0.9 %; Immature Granulocytes Absolute 0.08 #; Lymphocytes # 0.3 10*3/uL (1.4-4.0); Lymphocytes % 3.3 % (21.3-54.2); Mean Corpuscular HGB Conc 31.1 GM/DL (32-36); Mean Corpuscular Hemoglobin 26 PG (27-34); Mean Corpuscular Volume 84.9 FL (87-102); Mean Platelet Volume 11.4 FL (9.6-12.0); Monocytes # 0.2 10*3/uL (0.11-0.8); Neutrophils # 8.1 10*3/uL (1.4-7.4); Neutrophils % 93.7 % (38.7-73.9); Platelet Count 191 T/CUMM (130-400); Red Blood Count 4.05 MC/CUMM (3.8-5.5); Red Cell Distribution Width 13.8 % (9.3-17.3); White Blood Count 8.7 T/CUMM (4-12)
[2017-11-11 21:10] LABS: Alanine Aminotransferase 22 U/L (13-56); Albumin 2.2 G/DL (3.4-5.0); Alkaline Phosphatase 130 U/L (45-117); Aspartate Amino Transferase 9 U/L (0-37); Bilirubin,Total < 0.39 MG/DL (0.2-1.0); Blood Urea Nitrogen 21 MG/DL (7-18); Calcium 8.4 MG/DL (8.5-10.1); Glucose 425 MG/DL (74-106); Osmolality,Calculated 297.5 MOS/KG (273-304); Sodium 139 MMOL/L (136-145); Total Protein 6.2 G/DL (6.4-8.3); Troponin I Only < 0.015 NG/ML (0.00-0.045)
[2017-11-11 21:23] LABS: Apearance,Urine CLEAR (Clear); Bilirubin,Urine Negative (Negative); Blood, Urine Small mg/dL (Negative); Glucose,Urine (UA) >=500 mg/dL (Negative); Ketones,Urine Negative (Negative); Nitrite,Urine Negative (Negative); Protein,Urine >=500 MG/DL; RBC,Urine 10 /HPF (0-4); Urine Color Straw (Yellow); Urine Specific Gravity 1.025 (1.001-1.035); Urine Urobilinogen < 2.0 EU/DL (0.2-1.0); WBC,Urine 2 /HPF (0-6)
[2017-11-11 21:26] LABS: Barbiturates Screen,Urine Negative (Negative); Benzodiazepines Screen,Urine Negative (Negative); Cannabinoid Screen,Urine Negative (Negative); Opiate Screen,Urine Negative (Negative); Phencyclidine Screen,Urine Negative (Negative)
[2017-11-11 21:38] LABS: Lymphocytes 1 % (20-55); Platelet Estimate Normal; Polychromasia Few; Segmented Neutrophils 99 % (50-85); Total Cells Counted 100
[2017-11-11 21:42] LABS: INR 0.8; PT Patient Result 8.9 SECS
[2017-11-11] MEDS ORDERED: SODIUM CHLORIDE 0.9% 1,000 ML IV STA (22:18)
[2017-11-11] MEDS ORDERED: INSULIN REGULAR 100 UNIT/ML IV STA (22:19)
[2017-11-11] MEDS ORDERED: hydrALAZINE 20 MG/1 ML VIAL ONE (23:54)
[2017-11-12] MEDS ORDERED: hydrALAZINE 20 MG/1 ML VIAL IV STA (00:02)
[2017-11-12] MEDS ORDERED: ACETAMINOPHEN 325 MG TABLET PO PRN (01:10)
[2017-11-12] MEDS ORDERED: ONDANSETRON 4 MG/2 ML VIAL IV PRN (01:10)
[2017-11-12] MEDS ORDERED: DEXTROSE 50% 25 GM/50 ML VIAL IV PRN (01:17)
[2017-11-12] MEDS ORDERED: GLUCAGON 1 MG VIAL IM PRN (01:17)
[2017-11-12] MEDS: SODIUM CHLORIDE 0.9% 1,000 ML IV SCH ×3 (02:00→23:30)
[2017-11-12 04:03] LABS: Basophils % 0.2 % (0.0-0.8); Eosinophils % 0.1 % (0.00-10.9); Hematocrit 32.9 VOL% (35.7-47.0); Hemoglobin 10.5 GM/DL (12.0-16.0); Immature Granulocytes % 1.2 %; Immature Granulocytes Absolute 0.11 #; Lymphocytes # 0.8 10*3/uL (1.4-4.0); Lymphocytes % 8.5 % (21.3-54.2); Mean Corpuscular HGB Conc 31.9 GM/DL (32-36); Mean Corpuscular Hemoglobin 27 PG (27-34); Mean Corpuscular Volume 83.1 FL (87-102); Mean Platelet Volume 10.9 FL (9.6-12.0); Monocytes # 0.5 10*3/uL (0.11-0.8); Monocytes % 5.8 % (1.7-12.7); Neutrophils # 7.5 10*3/uL (1.4-7.4); Neutrophils % 84.2 % (38.7-73.9); Platelet Count 200 T/CUMM (130-400); Red Blood Count 3.96 MC/CUMM (3.8-5.5); White Blood Count 8.9 T/CUMM (4-12)
[2017-11-12 04:35] LABS: Risk Ratio 3.75
[2017-11-12] MEDS: INSULIN REGULAR 100 UNIT/ML SUBCUT SCH ×4 (10:36→21:00)
[2017-11-12] MEDS: PANTOPRAZOLE 40 MG TABLET PO SCH (10:38)
[2017-11-12] MEDS: ASPIRIN EC 81 MG TABLET PO SCH (10:38)
[2017-11-12] MEDS: HYDROXYCHLOROQUINE 200 MG TABLET PO SCH ×2 (10:38→21:29)
[2017-11-12] MEDS: amLODIPine 10 MG TABLET PO SCH (10:38)
[2017-11-12] MEDS: predniSONE 20 MG TABLET PO SCH (10:39)
[2017-11-12] MEDS: metFORMIN 500 MG TABLET PO SCH ×2 (10:39→17:10)
[2017-11-12] MEDS: ATORVASTATIN 40 MG TABLET PO SCH (10:39)
[2017-11-12] MEDS ORDERED: INSULIN GLARGINE 100 UNIT/ML SUBCUT SCH (21:00)
[2017-11-13 05:32] LABS: Basophils % 0.2 % (0.0-0.8); Eosinophils % 0.6 % (0.00-10.9); Hematocrit 31.2 VOL% (35.7-47.0); Hemoglobin 9.8 GM/DL (12.0-16.0); Immature Granulocytes % 1.3 %; Immature Granulocytes Absolute 0.07 #; Lymphocytes # 0.8 10*3/uL (1.4-4.0); Lymphocytes % 13.9 % (21.3-54.2); Mean Corpuscular HGB Conc 31.4 GM/DL (32-36); Mean Corpuscular Hemoglobin 27 PG (27-34); Mean Corpuscular Volume 85.7 FL (87-102); Mean Platelet Volume 10.8 FL (9.6-12.0); Monocytes # 0.5 10*3/uL (0.11-0.8); Monocytes % 8.7 % (1.7-12.7); Neutrophils # 4.1 10*3/uL (1.4-7.4); Neutrophils % 75.3 % (38.7-73.9); Platelet Count 167 T/CUMM (130-400); Red Blood Count 3.64 MC/CUMM (3.8-5.5); White Blood Count 5.4 T/CUMM (4-12)
[2017-11-13 05:53] LABS: Albumin 1.9 G/DL (3.4-5.0); Bilirubin,Total 0.4 MG/DL (0.2-1.0); Calcium 8.6 MG/DL (8.5-10.1); Osmolality,Calculated 286.8 MOS/KG (273-304); Potassium 3.6 MMOL/L (3.5-5.1); Total Protein 5.3 G/DL (6.4-8.3)
[2017-11-13] MEDS: HYDROXYCHLOROQUINE 200 MG TABLET PO SCH (09:46)
[2017-11-13] MEDS: predniSONE 20 MG TABLET PO SCH (09:46)
[2017-11-13] MEDS: metFORMIN 500 MG TABLET PO SCH (09:47)
[2017-11-13] MEDS: amLODIPine 10 MG TABLET PO SCH (09:47)
[2017-11-13] MEDS: ASPIRIN EC 81 MG TABLET PO SCH (09:47)
[2017-11-13] MEDS: PANTOPRAZOLE 40 MG TABLET PO SCH (09:47)
[2017-11-13] MEDS: ATORVASTATIN 40 MG TABLET PO SCH (09:48)
[2017-11-13] MEDS: INSULIN REGULAR 100 UNIT/ML SUBCUT SCH ×2 (10:51→12:43)
[2017-11-13] MEDS: SODIUM CHLORIDE 0.9% 1,000 ML IV SCH (10:52)
[2017-11-13 11:41] VITALS: BP 157/101
== END 2017-11-13 13:00 | disposition home health service (06) | DRG 948 ==
LOC: N.ED 19:16 → N.EDINP 11-12 01:10 → SUATTDRO 11-12 01:10 → N.2E 11-12 02:20
PROVIDERS: ATTEND Internal Medicine